=== PATIENT | female | born 1950 | race Caucasian/White ===

== ENCOUNTER 2018-03-01 06:51 | Inpatient (IN) ==
[2018-02-24 13:24] LABS: Appearance,Urine CLEAR; Bacteria,Urine 0 /hpf (0); Bilirubin,Urine NEG (NEG); Color,Urine YELLOW; Glucose,Urine (UA) NEGATIVE (NEG); Leukocyte Esterase,Urine NEG /uL (NEG); Mucus,Urine FEW /hpf (0); Protein,Urine NEG (NEG); Specific Gravity,Urine 1.017 (1.000-1.035); Urine Blood 0.03 mg/dL (<0.03); Urine RBC 1 /hpf (0-1); Urine Squamous Epithelial Cell 3 /hpf (0-4); Urine WBC 1 /hpf (0-4); Urobilinogen,Urine NEG (NEG)
[2018-02-24 14:00] LABS: Blood Urea Nitrogen 19 mg/dl (8-23)
[2018-02-24 14:18] LABS: Basophils # (Auto) 0 K/mcL (0.0-0.3); Basophils % (Auto) 0.2 % (0.0-2.0); Eosinophils # (Auto) 0.2 K/mcL (0.0-0.7); Granulocytes % (Auto) 48.4 % (38.0-78.0); Lymphocytes # (Auto) 2.2 K/mcL (1.5-4.8); Lymphocytes % (Auto) 40.6 % (15.5-49.0); Mean Cell Volume 87.7 fL (80.0-100.0); Mean Corpuscular HGB Conc 33.1 g/dL (31.0-36.0); Monocytes # (Auto) 0.4 K/mcL (0.1-0.9); Monocytes % (Auto) 6.8 % (1.0-12.0); Platelet Count 221 K/mcL (140-440); RBC 4.64 M/mcL (4.00-5.20)
[2018-03-01] MEDS ORDERED: ceFAZolin 1 GM VIAL IV SCH (07:00)
[2018-03-01] MEDS ORDERED: oxyCODONE 10 MG TAB.ER.12H PO SCH (07:00)
[2018-03-01] MEDS ORDERED: PREGABALIN 75 MG CAPSULE PO SCH (07:00)
[2018-03-01] MEDS ORDERED: CELECOXIB 200 MG CAPSULE PO SCH (07:00)
[2018-03-01] MEDS ORDERED: 0.9 % SODIUM CHLORIDE 9 ML, KETOROLAC 30 MG, ROPIVACAINE HCL/PF 49.5 ML, EPINEPHrine 0.... IJ SCH (07:00)
[2018-03-01] MEDS ORDERED: TRANEXAMIC ACID 1,000 MG/10 ML VIAL IV ONE (09:10)
[2018-03-01] MEDS ORDERED: LIDOCAINE HCL/PF 100 MG/5 ML SYRINGE IV ONE (09:10)
[2018-03-01] MEDS ORDERED: DEXAMETHASONE 10 MG/ML VIAL IV ONE (09:10)
[2018-03-01] MEDS ORDERED: ROPIVACAINE HCL/PF 20 ML VIAL IJ ONE (09:10)
[2018-03-01] MEDS ORDERED: MIDAZOLAM 5 MG/5 ML VIAL IV ONE (09:10)
[2018-03-01] MEDS ORDERED: GLYCOPYRROLATE 0.2 MG/ML VIAL IV ONE (09:10)
[2018-03-01] MEDS ORDERED: ONDANSETRON 4 MG/2 ML VIAL IV ONE (09:10)
[2018-03-01] MEDS ORDERED: PROPOFOL 200 MG/20 ML VIAL IV ONE (09:10)
[2018-03-01] MEDS ORDERED: LACTATED RINGERS 250 ML IV PRN (10:26)
[2018-03-01] MEDS ORDERED: ONDANSETRON 4 MG/2 ML VIAL IV PRN ×2 (10:26→10:59)
[2018-03-01] MEDS ORDERED: FLUMAZENIL 0.1 MG/ML ML IV PRN (10:26)
[2018-03-01] MEDS ORDERED: fentaNYL 100 MCG/2 ML VIAL IV PRN (10:26)
[2018-03-01] MEDS ORDERED: PROMETHAZINE 25 MG/ML VIAL IV PRN (10:26)
[2018-03-01] MEDS ORDERED: KETOROLAC 15 MG/ML VIAL IV PRN (10:26)
[2018-03-01] MEDS ORDERED: BENZOCAINE/MENTHOL 1 LOZENGE PO PRN ×2 (10:26→10:59)
[2018-03-01] MEDS ORDERED: ACETAMINOPHEN 1,000 MG/100 ML BOTTLE IV ONE (10:26)
[2018-03-01] MEDS ORDERED: NALOXONE HCL 0.4 MG/ML VIAL IV PRN (10:26)
[2018-03-01] MEDS ORDERED: diphenhydrAMINE 50 MG/ML VIAL IV PRN (10:26)
[2018-03-01] MEDS ORDERED: IPRATROPIUM/ALBUTEROL 3 ML AMPUL.NEB NEB PRN (10:26)
[2018-03-01] MEDS ORDERED: MEPERIDINE 25 MG/ML SYRINGE IV PRN (10:26)
[2018-03-01] MEDS ORDERED: LACTATED RINGERS 1,000 ML IV SCH (10:30)
[2018-03-01] MEDS ORDERED: MAGNESIUM HYDROXIDE 30 ML ORAL.SUSP PO PRN (10:59)
[2018-03-01] MEDS ORDERED: FLEETS ADULT ENEMA PR PRN (10:59)
[2018-03-01] MEDS ORDERED: HYDROmorphone 2 MG/ML VIAL IV PRN (10:59)
[2018-03-01] MEDS ORDERED: TRANEXAMIC ACID 1,000 MG/10 ML VIAL IV SCH (10:59)
[2018-03-01] MEDS ORDERED: POLYETHYLENE GLYCOL 3350 17 GM PACKET PO PRN (10:59)
[2018-03-01] MEDS ORDERED: BISACODYL 10 MG SUPP.RECT PR PRN (10:59)
--- NOTE | 2018-03-01 10:59 | Brief Operative Note ---
Date of procedure: 03/01/18 Pre-op diagnosis: R knee severe DJD Post-op diagnosis: same Procedure: Right robotic assisted total knee arthroplasty Grafts/Implants: Yes (Shahida Triathlon CR 5 femur, 5 tibia, 11 insert, 36 patella) Anesthesia: spinal, GLMA Findings: severe arthritis with severe flexion contracture Complications: none Surgeon: Jw Chao Financial Sales Advisor: Wang Huerta Estimated blood loss (cc): 30 Specimens Removed/Pathology: none sent Condition: stable Disposition: PACU
[2018-03-01] MEDS ORDERED: HALOBETASOL PROPIONATE TOPICAL PRN (11:03)
[2018-03-01] MEDS ORDERED: TRIAMCINOLONE CREAM 0.1% 15G 1 DOSE TUBE TOPICAL PRN (11:03)
[2018-03-01] MEDS ORDERED: PANTOPRAZOLE 40 MG TABLET PO PRN (11:03)
[2018-03-01] MEDS ORDERED: ALBUTEROL SULFATE 1 PUFF INHALER IH PRN (11:03)
[2018-03-01] MEDS: KETOROLAC 15 MG/ML VIAL IV SCH ×3 (11:29→23:42)
--- NOTE | 2018-03-01 12:03 | XRay Report ---
CLINICAL INFORMATION: Post-op total knee. COMPARISON: None. FINDINGS: Total knee prostheses is anatomically aligned. No osseous abnormality. Periarticular gas and soft tissue swelling seen as expected IMPRESSION: Negative Interpreted and Authenticated by: Cody Singer 03/01/18
[2018-03-01] MEDS: 0.9 % SODIUM CHLORIDE 1,000 ML IV SCH ×2 (12:25→23:41)
[2018-03-01] MEDS: 0.9 % SODIUM CHLORIDE 10 ML SYRINGE IV SCH ×2 (12:29→21:13)
--- NOTE | 2018-03-01 14:06 | Operative Note ---
DATE OF OPERATION: 03/01/2018 PREOPERATIVE DIAGNOSIS: Right knee severe osteoarthritis. POSTOPERATIVE DIAGNOSIS: Right knee severe osteoarthritis. PROCEDURE PERFORMED: Right total knee arthroplasty with robotic assistance, placing a Shahida Triathlon size 5 cruciate retaining femoral component, size 5 tibial baseplate with an 11 mm X3 tibial insert and a 36 mm patellar button. SURGEON: Jw Chao MD ANTHROPOLOGY PROFESSOR: Wang Huerta PA-C ANESTHESIA: Spinal plus general. COMPLICATIONS: None. BLOOD LOSS: Less than 30 mL SPECIMENS: Bone cuts, which were discarded. INDICATIONS FOR SURGERY: This is a 67-year-old female who has a longstanding problem with her right knee with a remote history of injury and surgery. She has severe deformity of the knee as well as flexion contracture. She is at least a good 20 degrees short of full extension and can only flex to 90. FINDINGS AT SURGERY: As above. Post-surgery shows extension to within 3 degrees of full extension and flexion to 125 degrees. PROCEDURE IN DETAIL: The patient had been seen preoperatively and informed consent had been obtained after discussion of risks and benefits of surgery. Risks including, but not limited to, bleeding; infection, possibly requiring implant removal and prolonged IV antibiotics; injury to nerves, blood vessels other surrounding structures; anesthetic risks, swelling, stiffness, instability; DVT and pulmonary embolus risks; and the possibility of needing further revision surgeries. She understood these risks and wished to proceed. Correct operative site was marked and the patient was given spinal anesthesia and then taken to the operating room where LMA general was given. The right lower extremity was carefully prepped and draped in normal sterile fashion and a timeout was performed verifying patient name, operative site, and plan. Esmarch was used to exsanguinate the extremity and tourniquet was inflated to 300 mmHg. Midline incision was made with a scalpel through skin and subcutaneous tissue. IrriSept was irrigated and then a medial parapatellar arthrotomy made. Subperiosteal exposure was done of the anterior medial tibia. We then placed femoral and tibial checkpoints after we did a subperiosteal release of the proximal medial tibia. What remained of the ACL and menisci were excised. We then placed two stab incisions over the femur and two over the tibia and bicortical pins placed and the arrays were connected. We then checked our hip center of rotation along with the green probe to the medial and lateral malleoli, and the ankle. We then double checked with the green probe our femoral and tibial checkpoints. We then used the blue probe to do our mapping. Once this was completed, we then used a rongeur to remove osteophytes which were quite extensive. I also did a deep release of the MCL using a Champion elevator, as much as I felt was safe. We then used the spoons and checked our flexion, extension gaps. As expected, she had a severe varus deformity. We did end up placing 3 degrees of varus in the tibia and 2 degrees of extra varus in the femur to get 17 mm gaps medially, both flexion and extension and excess flexion laterally with 17 as well, extension laterally with 18 mm. We then used the robotic arm to perform our bone cuts. Once this was completed, we prepared the tibia by externally rotating as bone coverage would allow. This was pinned into place and boss reamer and keel punch used to prepare the tibia. We then placed a keeled tibial trial. The femur was elevated and a curved osteotome was used to remove posterior osteophytes along with a curved curet. We then impacted the femoral trial size 5 cruciate retaining and lateraled this as bone coverage would allow. This was pinned into place. We drilled our peg holes. A 9 insert trial was placed and the knee was taken into extension. We then checked our patella thickness. In the middle it was 24, so we freehand resected until we had 14 mm. We went ahead and medialized maximally and drilled the peg holes. The patellar trial was placed and then a limited lateral facetectomy was performed with the oscillating saw. We checked our patellar tracking, which was good, so we went ahead and removed our trial implants. The definitive implant was opened except for the insert. We went ahead and irrigated the joint with IrriSept while antibiotic cement was mixed. We then pulse lavaged with saline and then the CO2 gun was used to clean and dry the cancellous bone surfaces. We then covered the bone surfaces with Palacos with gentamicin then impacted the tibia. Excess cement removed. We then repeated this for the femur and then impacted the implant and excess cement removed. A 9 insert trial was placed and the knee was taken into extension. Excess cement removed again. The patellar button was cemented. While cement was hardening, we went ahead and checked our extension, with gentle manipulation we were able to get her down to 3 degrees. I went ahead and filled the joint with IrriSept and removed our checkpoints. We injected pain cocktail in the pericapsular and subcutaneous tissues. Once cement had fully hardened, we flexed the knee up and did a final inspection and removed any excess cement. The insert trial was removed. We sized to an 11. This seemed to give us even better stability and we were still able to get less than 10 degrees short of full extension, so we went ahead and irrigated the joint with IrriSept. We injected pain cocktail in the posterior capsule and then impacted the 11 insert. The knee was taken through range of motion. Patella tracked well and the knee was very stable, so we went ahead and placed the knee in 45 degrees of flexion, we pulse lavaged copiously with saline. Interrupted #2 FiberWire vezigl-ms-zfxcch were placed around the superior quadrant of the patella, interrupted #1 Vicryl aeljok-ac-[id number] around the inferior quadrant. We went ahead and used #1 Vicryl to close running stitches in the patellar tendon and quad tendon. Final irrigation with IrriSept was done, after a minute final pulse lavage and then 2-0 Monocryl for subcutaneous and jimi for skin. Keasbey were used for the pin sites. Tourniquet was released. The patient was awakened, extubated, and transferred to recovery in stable condition. MIKE:chikis Job ID: [id number] Doc ID: [id number] Jw Chao MD
[2018-03-01] MEDS: HYDROcodone/APAP 10/325MG TABLET PO PRN ×2 (16:05→20:06)
[2018-03-01] MEDS: ceFAZolin 1 GM VIAL IV SCH (18:01)
[2018-03-01] MEDS ORDERED: HYDROCHLOROTHIAZIDE 25 MG TABLET PO SCH (21:00)
[2018-03-01] MEDS ORDERED: SENNOSIDES 1 TABLET PO SCH (21:00)
[2018-03-01] MEDS ORDERED: ATENOLOL 50 MG TABLET PO SCH (21:00)
[2018-03-01] MEDS ORDERED: amLODIPine 10 MG TABLET PO SCH (21:00)
[2018-03-01] MEDS ORDERED: CITALOPRAM 20 MG TABLET PO SCH (21:00)
[2018-03-01] MEDS ORDERED: traZODone HCL 50 MG TABLET PO PRN (21:00)
[2018-03-01] MEDS ORDERED: ATORVASTATIN 20 MG TABLET PO SCH (21:00)
[2018-03-01] MEDS ORDERED: DOXAZOSIN 4 MG TABLET PO SCH (21:00)
[2018-03-01] MEDS ORDERED: FUROSEMIDE 40 MG TABLET PO SCH (21:00)
[2018-03-01] MEDS ORDERED: POTASSIUM CHLORIDE 10 MEQ TABLET PO SCH (21:00)
[2018-03-01] MEDS ORDERED: LEVOTHYROXINE SODIUM 112 MCG TABLET PO SCH (21:00)
[2018-03-01] MEDS: DOCUSATE SODIUM 100 MG CAPSULE PO SCH (21:04)
[2018-03-01] MEDS: ASPIRIN 325 MG ENTERIC COATED TABLET PO SCH (21:04)
[2018-03-01] MEDS: PIROXICAM 10 MG CAPSULE PO SCH (21:09)
[2018-03-02] MEDS: ceFAZolin 1 GM VIAL IV SCH (00:46)
[2018-03-02] MEDS: HYDROcodone/APAP 10/325MG TABLET PO PRN ×4 (00:52→16:45)
[2018-03-02] MEDS: 0.9 % SODIUM CHLORIDE 10 ML SYRINGE IV SCH ×2 (05:24→11:47)
[2018-03-02] MEDS: KETOROLAC 15 MG/ML VIAL IV SCH ×2 (05:24→11:48)
--- NOTE | 2018-03-02 06:56 | Discharge Summary ---
Providers - Providers Patient information: Note initiated : 03/02/18 at 6:50 am Service Date, if different from initiated Date: [] Patient: Amanda Leblanc 67 y/o F admitted on 03/01/18 for Right Total Knee Arthroplasty - Hilton. Chief Complaint: [] Discharge date: 03/02/18 Hospitalization Hospital course: Patient was admitted after surgery for pain control and PT. Her stay was uneventful. Discharge diagnosis: s/p right total knee arthroplasty Ortho Discharge - TKA - Patient Instructions Diet: Regular Diet Total Knee Protocol: For Total Knee: Start ROM JAVIER with stationary bike or rocking chair. Work on gaining full extension of knee. Posterior dislocation precautions provided. Hip abductor strengthening and gait training instructions provided. Apply Cryocuff as instructed. Dressing Care: Aquacel Ag - leave on for 5 days - Follow Up Plan Follow Up Appointments: Armando Aburto PA-C [Physician Valve Repairer] - 03/16/18 1:40 pm Disposition: Home, Self-Care Prognosis: Good Rehab Potential: Good Overall status at discharge: patient is progressing back to baseline - Orders For Discharge Prescriptions: Aspirin 325 mg PO BID #60 tab HYDROcodone/ACETAMINOPHEN [Hydrocodon-Acetaminophn 10-325] 1 - 2 tab PO Q4-6HP PRN #90 tab PRN Reason: Pain Additional Discharge Orders: Physical Therapy at Discharge - TKA Location: None Selected Pending Studies Resuscitation Status Full Code Diet Consistent Carbohydrate Diet Start TueMar 01 1101 Hydrocodone Bitart/Acetaminophen ([place] 10/325mg) 0 tab PO Q4HP PRN PRN Reason: PAIN LEVEL 3-6 Last Admin: 03/02/18 06:40 Dose: 2 tab Admin: 03/02/18 00:52 Dose: 2 tab Admin: 03/01/18 20:06 Dose: 2 tab Admin: 03/01/18 16:05 Dose: 1 tab Amlodipine Besylate (Norvasc) 10 mg PO HS [facility] Last Admin: 03/01/18 21:07 Dose: 10 mg Aspirin (Ecotrin) 325 mg PO BID [facility] Last Admin: 03/01/18 21:04 Dose: 325 mg Atenolol (Tenormin) 50 mg PO HS [facility] Last Admin: 03/01/18 21:13 Dose: 50 mg Atorvastatin Calcium (Lipitor) 40 mg PO HS [facility] Last Admin: 03/01/18 21:07 Dose: 40 mg Citalopram Hydrobromide (Celexa) 30 mg PO [facility] Last Admin: 03/01/18 21:03 Dose: 30 mg Docusate Sodium (Colace) 100 mg PO BID [facility] Last Admin: 03/01/18 21:04 Dose: 100 mg Doxazosin Mesylate (Cardura) 2 mg PO [facility] Last Admin: 03/01/18 21:02 Dose: 2 mg Furosemide (Lasix) 40 mg PO [facility] Last Admin: 03/01/18 21:06 Dose: Hydrochlorothiazide (Oretic) 25 mg PO [facility] Last Admin: 03/01/18 21:09 Dose: 25 mg Sodium Chloride (Sodium Chloride 0.9%) 1,000 mls @ 100 mls/hr IV .Q10H [facility] Last Infusion: 03/02/18 00:56 Dose: 0 mls/hr Admin: 03/01/18 23:41 Dose: Not Given Admin: 03/01/18 12:25 Dose: 100 mls/hr Ketorolac Tromethamine (Toradol) 15 mg IV Q6 [facility] Stop: 03/03/18 06:01 Last Admin: 03/02/18 05:24 Dose: 15 mg Admin: 03/01/18 23:42 Dose: 15 mg Admin: 03/01/18 18:01 Dose: 15 mg Admin: 03/01/18 11:29 Dose: 15 mg Levothyroxine Sodium (Synthroid) 112 mcg PO [facility] Last Admin: 03/01/18 21:12 Dose: 112 mcg Piroxicam 10 Mg (Capsule) 1 dose PO BID [facility] Last Admin: 03/01/18 21:09 Dose: Not Given Potassium Chloride (Kdur) 10 meq PO [facility] Last Admin: 03/01/18 21:05 Dose: 10 meq Senna (Senokot) 2 tab PO [facility] Last Admin: 03/01/18 21:12 Dose: 2 tab Sodium Chloride (Saline Flush) 10 ml IV Q8 [facility] Last Admin: 03/02/18 05:24 Dose: 10 ml Admin: 03/01/18 21:13 Dose: Not Given Admin: 03/01/18 12:29 Dose: Not Given Shift Summary 03/02/18 04:42 Shift Summary by Shauna Paez&Ox4. VSS; placed on 2L O2 due to O2 sat decreasing to 88% while sleeping. Up with FWW and SBA. Dressing to surgical site to right knee has shadow drainage present; reinforced with additional kerlix and abd. Administered 2 tablets [place] 10/325mg x2 for pain. 18 gauge to left forearm is SL. Will update at bedside. Initialized on 03/02/18 04:42 - END OF NOTE
[2018-03-02] MEDS: ASPIRIN 325 MG ENTERIC COATED TABLET PO SCH (09:19)
[2018-03-02] MEDS: DOCUSATE SODIUM 100 MG CAPSULE PO SCH (09:19)
[2018-03-02] MEDS: 0.9 % SODIUM CHLORIDE 1,000 ML IV SCH (11:51)
[2018-03-02] MEDS: PIROXICAM 10 MG CAPSULE PO SCH (11:51)
== END 2018-03-02 17:40 | disposition home or self-care (01) | DRG 470 ==
LOC: MEDSUR 06:51
PROVIDERS: ADMIT Orthopaedic Surgery; ATTEND Orthopaedic Surgery

== ENCOUNTER 2018-05-31 07:38 | Inpatient (IN) ==
[2018-05-17 15:16] LABS: Appearance,Urine CLEAR; Bacteria,Urine 0 /hpf (0); Bilirubin,Urine NEG (NEG); Color,Urine YELLOW; Glucose,Urine (UA) NEGATIVE (NEG); Leukocyte Esterase,Urine 25 /uL (NEG); Mucus,Urine MANY /hpf (0); Protein,Urine NEG (NEG); Specific Gravity,Urine 1.025 (1.000-1.035); Urine Blood NEG mg/dL (<0.03); Urine Hyaline Cast 20 /lpf (0-2); Urine RBC 6 /hpf (0-1); Urine Squamous Epithelial Cell 1 /hpf (0-4); Urine WBC 14 /hpf (0-4)
[2018-05-17 19:01] LABS: Basophils # (Auto) 0 K/mcL (0.0-0.3); Basophils % (Auto) 0.3 % (0.0-2.0); Eosinophils # (Auto) 0.2 K/mcL (0.0-0.7); Eosinophils % (Auto) 1.9 % (0.0-7.0); Granulocytes % (Auto) 61.6 % (38.0-78.0); Lymphocytes # (Auto) 2.5 K/mcL (1.5-4.8); Lymphocytes % (Auto) 30.3 % (15.5-49.0); Mean Cell Volume 86.1 fL (80.0-100.0); Mean Corpuscular HGB Conc 33.2 g/dL (31.0-36.0); Monocytes # (Auto) 0.5 K/mcL (0.1-0.9); Monocytes % (Auto) 5.9 % (1.0-12.0); Platelet Count 266 K/mcL (140-440); RBC 4.77 M/mcL (4.00-5.20); Red Cell Distribution Width 14.3 % (11.5-14.5)
[2018-05-17 19:27] LABS: Blood Urea Nitrogen 22 mg/dl (8-23)
[2018-05-17 20:34] LABS: Estimated Average Glucose(eAG) 111 mg/dL; Hemoglobin A1C 5.5 % HGB (4.0-6.0)
[~2018-05-31 07:38] MED LIST: 0.9 % SODIUM CHLORIDE 9 ML, KETOROLAC 30 MG, ROPIVACAINE HCL/PF 49.5 ML, EPINEPHrine 0.... IJ SCH; CELECOXIB 200 MG CAPSULE PO SCH; PREGABALIN 75 MG CAPSULE PO SCH; ceFAZolin 1 GM VIAL IV SCH; oxyCODONE 10 MG TAB.ER.12H PO SCH
[2018-05-31] MEDS ORDERED: LIDOCAINE HCL/PF 100 MG/5 ML SYRINGE IV ONE (11:25)
[2018-05-31] MEDS ORDERED: MIDAZOLAM 5 MG/5 ML VIAL IV ONE (11:25)
[2018-05-31] MEDS ORDERED: GLYCOPYRROLATE 0.2 MG/ML VIAL IV ONE (11:25)
[2018-05-31] MEDS ORDERED: PROPOFOL 200 MG/20 ML VIAL IV ONE (11:25)
[2018-05-31] MEDS ORDERED: ONDANSETRON 4 MG/2 ML VIAL IV ONE (11:25)
[2018-05-31] MEDS ORDERED: ROPIVACAINE HCL/PF 20 ML VIAL IJ ONE (11:25)
[2018-05-31] MEDS ORDERED: ePHEDrine 50 MG/ML AMPUL IV ONE (11:25)
[2018-05-31] MEDS ORDERED: DEXAMETHASONE 10 MG/ML VIAL IV ONE (11:25)
[2018-05-31] MEDS ORDERED: MEPERIDINE 25 MG/ML SYRINGE IV PRN (12:26)
[2018-05-31] MEDS ORDERED: fentaNYL 100 MCG/2 ML VIAL IV PRN (12:26)
[2018-05-31] MEDS ORDERED: HYDROmorphone 2 MG/ML VIAL IV PRN ×2 (12:26→13:10)
[2018-05-31] MEDS ORDERED: ePHEDrine 50 MG/ML AMPUL IV PRN (12:26)
[2018-05-31] MEDS ORDERED: diphenhydrAMINE 50 MG/ML VIAL IV PRN (12:26)
[2018-05-31] MEDS ORDERED: ACETAMINOPHEN 1,000 MG/100 ML BOTTLE IV ONE (12:26)
[2018-05-31] MEDS ORDERED: METOPROLOL TARTRATE 5 MG/5 ML VIAL IV PRN (12:26)
[2018-05-31] MEDS ORDERED: ONDANSETRON 4 MG/2 ML VIAL IV PRN ×2 (12:26→13:10)
[2018-05-31] MEDS ORDERED: ATROPINE SULFATE 0.4 MG/ML VIAL IV PRN (12:26)
[2018-05-31] MEDS ORDERED: FLUMAZENIL 0.1 MG/ML ML IV PRN (12:26)
[2018-05-31] MEDS ORDERED: IPRATROPIUM/ALBUTEROL 3 ML AMPUL.NEB NEB PRN (12:26)
[2018-05-31] MEDS ORDERED: PROMETHAZINE 25 MG/ML VIAL IV PRN (12:26)
[2018-05-31] MEDS ORDERED: METHOCARBAMOL 1,000 MG/10 ML VIAL IV PRN (12:26)
[2018-05-31] MEDS ORDERED: LACTATED RINGERS 1,000 ML IV SCH (12:30)
[2018-05-31] MEDS ORDERED: FLEETS ADULT ENEMA PR PRN (13:10)
[2018-05-31] MEDS ORDERED: MAGNESIUM HYDROXIDE 30 ML ORAL.SUSP PO PRN (13:10)
[2018-05-31] MEDS ORDERED: BENZOCAINE/MENTHOL 1 LOZENGE PO PRN (13:10)
[2018-05-31] MEDS ORDERED: TRANEXAMIC ACID 1,000 MG/10 ML VIAL IV ONE (13:10)
[2018-05-31] MEDS ORDERED: POLYETHYLENE GLYCOL 3350 17 GM PACKET PO PRN (13:10)
[2018-05-31] MEDS ORDERED: BISACODYL 10 MG SUPP.RECT PR PRN (13:10)
--- NOTE | 2018-05-31 13:10 | Brief Operative Note ---
Date of procedure: 05/31/18 Pre-op diagnosis: Left knee severe OA Post-op diagnosis: same Procedure: Left robotic assisted total knee arthroplasty Grafts/Implants: Yes (Pattison Triathlon CR 5 femur, 4 tibia, 36 patella, 9mm insert) Anesthesia: spinal, GLMA Findings: severe arthritis Complications: none Surgeon: Jw Chao Design Technician: Armando Aburto Estimated blood loss (cc): 30 Specimens Removed/Pathology: none sent Condition: stable Disposition: PACU
[2018-05-31] MEDS ORDERED: TRIAMCINOLONE CREAM 0.1% 15G 1 DOSE TUBE TOPICAL PRN (13:16)
[2018-05-31] MEDS ORDERED: traZODone HCL 50 MG TABLET PO PRN (13:16)
[2018-05-31] MEDS ORDERED: PANTOPRAZOLE 40 MG TABLET PO PRN (13:16)
[2018-05-31] MEDS ORDERED: HALOBETASOL PROPIONATE TP PRN (13:16)
[2018-05-31] MEDS ORDERED: ALBUTEROL SULFATE 1 PUFF INHALER IH PRN (13:16)
--- NOTE | 2018-05-31 14:07 | XRay Report ---
HISTORY: Postop left knee replacement FINDINGS: There is a well-positioned left knee prosthesis. No fracture or abnormal soft tissue calcification are present. IMPRESSION: Well-positioned left knee prosthesis Interpreted and Authenticated by: Licnoln Marte 05/31/18
[2018-05-31] MEDS: 0.9 % SODIUM CHLORIDE 10 ML SYRINGE IV SCH ×2 (14:13→21:05)
[2018-05-31] MEDS: 0.9 % SODIUM CHLORIDE 1,000 ML IV SCH (15:52)
[2018-05-31] MEDS: oxyCODONE/APAP 5/325MG TABLET PO PRN ×2 (16:05→20:59)
[2018-05-31] MEDS: KETOROLAC 30 MG/ML VIAL IV SCH (18:18)
[2018-05-31] MEDS: ceFAZolin 1 GM VIAL IV SCH (19:22)
[2018-05-31] MEDS ORDERED: LEVOTHYROXINE SODIUM 112 MCG TABLET PO SCH (21:00)
[2018-05-31] MEDS ORDERED: DOXAZOSIN 1 MG TABLET PO SCH (21:00)
[2018-05-31] MEDS ORDERED: ATENOLOL 50 MG TABLET PO SCH (21:00)
[2018-05-31] MEDS ORDERED: HYDROCHLOROTHIAZIDE 25 MG TABLET PO SCH (21:00)
[2018-05-31] MEDS ORDERED: POTASSIUM CHLORIDE 10 MEQ TABLET PO SCH (21:00)
[2018-05-31] MEDS ORDERED: ATORVASTATIN 20 MG TABLET PO SCH (21:00)
[2018-05-31] MEDS ORDERED: SENNOSIDES 1 TABLET PO SCH (21:00)
[2018-05-31] MEDS ORDERED: CITALOPRAM 20 MG TABLET PO SCH (21:00)
[2018-05-31] MEDS ORDERED: amLODIPine 10 MG TABLET PO SCH (21:00)
[2018-05-31] MEDS: DOCUSATE SODIUM 100 MG CAPSULE PO SCH (21:03)
[2018-05-31] MEDS: ASPIRIN 325 MG ENTERIC COATED TABLET PO SCH (21:05)
[2018-06-01] MEDS: KETOROLAC 30 MG/ML VIAL IV SCH ×3 (00:16→13:59)
[2018-06-01] MEDS: 0.9 % SODIUM CHLORIDE 1,000 ML IV SCH ×2 (00:23→11:02)
[2018-06-01] MEDS: oxyCODONE/APAP 5/325MG TABLET PO PRN ×4 (00:49→15:45)
[2018-06-01] MEDS: ceFAZolin 1 GM VIAL IV SCH (02:20)
[2018-06-01] MEDS: 0.9 % SODIUM CHLORIDE 10 ML SYRINGE IV SCH ×2 (05:07→14:00)
--- NOTE | 2018-06-01 07:35 | Discharge Summary ---
Providers - Providers Patient information: Note initiated : 06/01/18 at 7:31 am Service Date, if different from initiated Date: [] Patient: Amanda Leblanc 67 y/o F admitted on 05/31/18 for Left Robotic Total Knee Arthroplasty. Chief Complaint: [] Discharge date: 06/01/18 Hospitalization Hospital course: Pt was admitted for a TKA. Pt underwent the procedure on the day of admission. Pt spent one night on the floor for IV abx, IV pain meds, and PT. Pt will use ASA for DVT prophylaxis and was prescribed appropriate pain meds. Will f/u in 2 weeks. Discharge diagnosis: L knee OA Exam - Exam Clean and dry: Yes Weight bearing status: as tolerated Ortho Discharge - TKA - Patient Instructions Diet: Regular Diet Activity: activity as tolerated Total Knee Protocol: For Total Knee: Start ROM JAVIER with stationary bike or rocking chair. Work on gaining full extension of knee. Posterior dislocation precautions provided. Hip abductor strengthening and gait training instructions provided. Apply Cryocuff as instructed. Dressing Care: May shower in 2 days - Follow Up Plan Follow Up Appointments: Armando Aburto PA-C [Physician Marketing Project Manager] - 06/15/18 11:20 am Disposition: Home, Self-Care Prognosis: Good Rehab Potential: Good Overall status at discharge: patient is progressing back to baseline - Orders For Discharge Prescriptions: Aspirin [Ecotrin] 325 mg PO BID #30 tab.ec oxyCODONE/APAP [Percocet 5-325 mg] 1 - 2 tab PO Q4HP PRN #75 tab PRN Reason: Pain Level 3-6 Pending Studies Resuscitation Status Full Code Diet Regular Diet Start TueMay 31 1312 Amlodipine Besylate (Norvasc) 10 mg PO [facility] Last Admin: 05/31/18 21:02 Dose: 10 mg Aspirin (Ecotrin) 325 mg PO BID [facility] Last Admin: 05/31/18 21:05 Dose: 325 mg Atenolol (Tenormin) 50 mg PO [facility] Last Admin: 05/31/18 21:03 Dose: 50 mg Atorvastatin Calcium (Lipitor) 40 mg PO [facility] Last Admin: 05/31/18 21:02 Dose: 40 mg Citalopram Hydrobromide (Celexa) 30 mg PO [facility] Last Admin: 05/31/18 21:00 Dose: 30 mg Docusate Sodium (Colace) 100 mg PO BID [facility] Last Admin: 05/31/18 21:03 Dose: 100 mg Doxazosin Mesylate (Cardura) 2 mg PO [facility] Last Admin: 05/31/18 21:04 Dose: 2 mg Hydrochlorothiazide (Oretic) 25 mg PO [facility] Last Admin: 05/31/18 21:02 Dose: 25 mg Sodium Chloride (Sodium Chloride 0.9%) 1,000 mls @ 100 mls/hr IV .Q10H [facility] Last Infusion: 06/01/18 02:31 Dose: 0 mls/hr Admin: 06/01/18 00:23 Dose: Not Given Admin: 05/31/18 15:52 Dose: 100 mls/hr Ketorolac Tromethamine (Toradol) 30 mg IV Q6 [facility] Stop: 06/02/18 12:01 Last Admin: 06/01/18 05:07 Dose: 30 mg Admin: 06/01/18 00:16 Dose: 30 mg Admin: 05/31/18 18:18 Dose: 30 mg Levothyroxine Sodium (Synthroid) 112 mcg PO [facility] Last Admin: 05/31/18 21:04 Dose: 112 mcg Oxycodone/Acetaminophen (Percocet 5-325 Mg) 0 tab PO Q4HP PRN PRN Reason: PAIN LEVEL 3-6 Last Admin: 06/01/18 05:12 Dose: 1 tab Admin: 06/01/18 00:49 Dose: 1 tab Admin: 05/31/18 20:59 Dose: 1 tab Admin: 05/31/18 16:05 Dose: 1 tab Potassium Chloride (Kdur) 10 meq PO [facility] Last Admin: 05/31/18 21:03 Dose: 10 meq Senna (Senokot) 2 tab PO [facility] Last Admin: 05/31/18 21:03 Dose: 2 tab Sodium Chloride (Saline Flush) 10 ml IV Q8 [facility] Last Admin: 06/01/18 05:07 Dose: 10 ml Admin: 05/31/18 21:05 Dose: 10 ml Admin: 05/31/18 14:13 Dose: Not Given Shift Summary 06/01/18 02:49 Shift Summary by Kelly Cruz Addendum entered by Kelly Cruz RVirginia 06/01/18 02:53: AOx4. OOB SBA with FWW. Voiding without issue. PVR Bladder scan < 10ml. Oral intake adequate. PIV SL. L total knee wtih mirian wrap in place. AV Boots. Day shift applied 2L NC after desaturation post PRN percocet administration. Attempt to wean to RA with pulse < 90%. Currently on 1L NC with sats mid 90s. CONT pulse ox on overnight per family request. 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 Pain up to 5 /10 with adequate relief from scheduled toradol and PRN percocet. Original Note: AOx4. OOB SBA with FWW. Voiding without issue. Oral intake adequate. PIV SL. L total knee wtih mirian wrap in place. AV Boots. Day shift applied 2L NC after desaturation post PRN percocet administration. Attempt to wean to RA with pulse <90%. Currently on 1L NC with sats mid 90s/. Initialized on 06/01/18 02:49 - END OF NOTE
[2018-06-01] MEDS: DOCUSATE SODIUM 100 MG CAPSULE PO SCH (07:42)
[2018-06-01] MEDS: ASPIRIN 325 MG ENTERIC COATED TABLET PO SCH (07:42)
--- NOTE | 2018-06-01 14:53 | Operative Note ---
DATE OF OPERATION: 05/31/2018 PREOPERATIVE DIAGNOSIS: Left knee severe osteoarthritis. POSTOPERATIVE DIAGNOSIS: Left knee severe osteoarthritis. PROCEDURE PERFORMED: Left robotic-assisted total knee arthroplasty placing a cruciate retaining size 5 femoral component, a size 4 tibial baseplate, a 9 mm insert with a 36 mm patellar button. SURGEON: Jw Chao MD CLASSROOM TECHNOLOGY TECHNICIAN: Jona Aburto PA-C. ANESTHESIA: Spinal plus general. DRAINS: None. SPECIMENS: Bone cuts, which were discarded. BLOOD LOSS: 30 mL POSTOPERATIVE CONDITION: Stable. INDICATIONS FOR SURGERY: This is a 67-year-old female who has had longstanding progressive worsening left knee pain. Radiographs showed severe tricompartmental osteoarthritis. FINDINGS AT SURGERY: She had severe arthritis. Post implantation showed good limb alignment. The patient had been seen preoperatively and informed consent had been obtained after discussion of risks and benefits of surgery. Risks included, but are not limited to, bleeding; infection; injury to nerves, blood vessels, and other surrounding structures; anesthetic risks; incomplete or no resolution of symptoms; stiffness; swelling; pain; DVT and pulmonary embolus risks. She understood these risks and wished to proceed. Correct operative site was marked. The patient was taken to the operating room after spinal anesthesia was given. LMA general was performed. The left lower extremity was carefully prepped and draped in normal sterile fashion. A timeout was performed verifying patient name, operative site, and plan. Esmarch was used to exsanguinate the extremity and tourniquet was inflated. Midline incision was made with a scalpel through skin and subcutaneous tissue. Hemostasis was obtained. IrriSept was irrigated and then a medial parapatellar arthrotomy made. Subperiosteal exposure was done of the anterior medial tibia as well as resection of the anterior horns of menisci and ACL was transected. We placed a femoral and tibial checkpoint. Two stab incisions were made over the femur and two over the tibia and bicortical pins placed and the arrays were connected. We did our hip center of rotation check and then green probe was used to identify medial and lateral malleoli and do double checks of her checkpoints. We then used the blue probe to do our mapping. After this was completed, osteophytes were removed. We then checked our flexion, extension gaps. Components were adjusted until we had 17 mm gaps in all 4 quadrants. We then used the robotic arm to do our bone cuts. Once this was completed, the tibia was sized down to a 4 to fit the lateral side and this was externally rotated as bone coverage allowed. This was prepared with boss reamer and keel punch and then a keeled tibial trial placed. Posterior osteophytes were removed and then a femoral trial was placed. We trialed the 9 insert which gave us about 10 degrees short of full extension. We then freehand resected the patella and medialized this maximally. Holes were drilled and a trial placed, lateral facetectomy performed. There was some lateral tracking of patella, so we did end up doing a lateral release with the Bovie. We removed trial implants. Definitive implants were opened while antibiotic cement was mixed. We irrigated with IrriSept, after a minute pulse with saline. We then used the CO2 gun on the cancellous bone surface to clean and dry and then antibiotic cement was used to cement the implant. Excess was removed. The knee was taken into extension and held until fully hardened. Pain cocktail was injected in the pericapsular and subcutaneous tissues. We then removed the trial insert, injected the posterior capsule and then irrigated IrriSept and the 9 insert was impacted. The knee was then pulse lavaged with saline and then placed about 45 degrees of flexion. Then, #2 FiberWire bfzxss-yj-jfgare were used around the superior quadrant, #1 Vicryl ngkmtl-wi-[id number] around the inferior quadrant, running #1 Vicryl was used for patellar tendon and quad tendon. Checkpoints had been removed prior to closure. We then did another IrriSept irrigation, after a minute final pulse lavage, 2-0 Monocryl for subcutaneous and jimi for skin. Pins were removed and jimi used for those stab incisions. Xeroform sterile dressings applied. Tourniquet was released. The patient was awakened, extubated, and transferred to recovery in stable condition. [email or web address] Job ID: [id number] Doc ID: [id number] Jw Chao MD
== END 2018-06-01 17:05 | disposition home or self-care (01) | DRG 470 ==
LOC: MEDSUR 07:38
PROVIDERS: ADMIT Orthopaedic Surgery; ATTEND Orthopaedic Surgery